=== PATIENT | male | born 1965 | race Caucasian/White ===

== ENCOUNTER 2021-09-18 02:04 | Inpatient (IN) | payer OTHER ==
[~2021-09-18] VITALS: Ht 182.9 cm; Wt 188.2 kg
[2021-09-18 03:18] LABS: HEMOGLOBIN 15.1 gm/dl (14.0-17.5); RED BLOOD COUNT 4.92 M/UL (4.20-5.50); WHITE BLOOD COUNT 17.8 K/UL (4.5-11.0)
[2021-09-18 04:03] LABS: BUN/CREATININE RATIO 26 (0-10)
[2021-09-18] MEDS ORDERED: XTAMPZA ER18 MG PO (10:42)
[2021-09-18] MEDS ORDERED: GABAPENTIN800 MG PO (10:42)
[2021-09-18] MEDS ORDERED: CYMBALTA60 MG PO (10:43)
[2021-09-18] MEDS ORDERED: OXYCODONE-ACET1 EACH PO (10:43)
[2021-09-18] MEDS ORDERED: TRESIBA SQ (10:44)
[2021-09-18] MEDS ORDERED: JARDIANCE25 MG PO (10:44)
[2021-09-18] MEDS ORDERED: LEVOTHYROXINE50 MCG PO (10:45)
[2021-09-18] MEDS ORDERED: BENAZEPRIL HCL5 MG PO (10:45)
[2021-09-18] MEDS ORDERED: PRAVASTATIN SOD20 MG PO (10:46)
[2021-09-18] MEDS ORDERED: ASPIRIN EC81 MG PO (10:46)
[2021-09-18 21:24] LABS: ACINETOBACTER BAUMANNII Not Detected (Negative); CANDIDA ALBICANS Not Detected (Negative); CANDIDA KRUSEI Not Detected (Negative); CANDIDA TROPICALIS Not Detected (Negative); ENTEROCOCCUS Not Detected (Negative); ESCHERICHIA COLI Not Detected (Negative); HAEMOPHILUS INFLUENZAE Not Detected (Negative); KLEBSIELLA OXYTOCA Not Detected (Negative); KLEBSIELLA PNEUMONIAE Not Detected (Negative); KPC-CARBAPENEM-RESISTANCE GENE Not Detected (Negative); PROTEUS Not Detected (Negative); PSEUDOMONAS AERUGINOSA Not Detected (Negative); SERRATIA MARCESANS Not Detected (Negative); STREP AGALACTIAE (GROUP B) Not Detected (Negative); STREP PYOGENES (GROUP A) Not Detected (Negative); STREPTOCOCCUS Not Detected (Negative); mecA (METHICILLIN RESIST GENE Not Detected (Negative); vanA/B (VANCOMYCIN RESIST GENE Not Detected (Negative)
[2021-09-18 22:37] LABS: STAPHYLOCOCCUS DETECTED (Negative); STAPHYLOCOCCUS AUREUS DETECTED (Negative)
[2021-09-19 08:18] LABS: HEMOGLOBIN 15.7 gm/dl (14.0-17.5); RED BLOOD COUNT 5.37 M/UL (4.20-5.50); WHITE BLOOD COUNT 13.2 K/UL (4.5-11.0)
--- NOTE | 2021-09-19 11:47 | NUR ---
PATIENT NOTED TO HAVE A CO2 OF 7. PROVIDER MADE AWARE. NEW ORDERS GIVEN
[2021-09-19 14:37] LABS: BUN/CREATININE RATIO 45 (0-10)
--- NOTE | 2021-09-19 14:45 | NUR ---
PATIENT STARTED ON BICARB DRIP AT THIS TIME PER PROVIDER ORDER. PATIENT IS RESTINGIN BED AT THS TIME WITH NO ACUTE DISTRESS NOTED. PATIENT DENIES ANY NEW NEEDS. AWAITING AN ICU BED ASSIGNMENT AT THIS TIME.
[2021-09-19 19:25] LABS: BUN/CREATININE RATIO 42 (0-10)
--- NOTE | 2021-09-19 19:32 | NUR ---
Report called to Dana RN in ICU at this time.
[2021-09-19 23:32] LABS: BUN/CREATININE RATIO 43 (0-10)
[2021-09-20 02:06] LABS: HEMOGLOBIN 14.4 gm/dl (14.0-17.5); WHITE BLOOD COUNT 10.5 K/UL (4.5-11.0)
[2021-09-20 02:12] LABS: RED BLOOD COUNT 4.69 M/UL (4.20-5.50)
[2021-09-20 02:24] LABS: BUN/CREATININE RATIO 39 (0-10)
[2021-09-20 06:40] LABS: BUN/CREATININE RATIO 37 (0-10)
[2021-09-20 10:29] LABS: BUN/CREATININE RATIO 38 (0-10)
[2021-09-20 12:02] LABS: BUN/CREATININE RATIO 41 (0-10)
[2021-09-20 14:38] LABS: BUN/CREATININE RATIO 36 (0-10)
[2021-09-20 16:14] LABS: ORGANISM ID Not indicated. (.); SPECIMEN SOURCE Urine (.); STREPTOCOCCUS PNEUMONIAE AG Negative (Negative)
[2021-09-20 18:39] LABS: BUN/CREATININE RATIO 35 (0-10)
[2021-09-20 23:00] LABS: BUN/CREATININE RATIO 32 (0-10)
[2021-09-21 03:52] LABS: HEMOGLOBIN 13.6 gm/dl (14.0-17.5); RED BLOOD COUNT 4.53 M/UL (4.20-5.50); WHITE BLOOD COUNT 10.2 K/UL (4.5-11.0)
[2021-09-21 04:13] LABS: BUN/CREATININE RATIO 33 (0-10)
[2021-09-21 04:17] LABS: BUN/CREATININE RATIO 36 (0-10)
[2021-09-21] MEDS ORDERED: HUMALOG 10100 UNITS/ SC (12:20)
[2021-09-21] MEDS ORDERED: METFORMIN HCL1000 M1 PO (12:20)
[2021-09-21] MEDS ORDERED: BACTRIM DS TAB1 EACH PO (12:20)
[2021-09-21] MEDS ORDERED: LANTUS INS100 UTS/M1 SQ (12:20)
--- NOTE | 2021-09-21 12:56 | NUR ---
with dr. anderson patient able to get out of bed with no assistance
== END 2021-09-21 13:52 | disposition home or self-care (01) | DRG 637 ==
LOC: ER1 02:04 → CDU 04:47 → CCU 04:47 → CDU 04:47 → MED SURG 4 20:20 → CCU 09-19 21:45 → M/S 09-20 19:32
PROVIDERS: Family Medicine; Internal Medicine; Internal Medicine Nephrology; ADMIT Internal Medicine
PROC: B24BZZZ Ultrasonography of Heart with Aorta (ICD-10-PCS; principal; 2021-09-19)
DX: E11.10 Type 2 diabetes mellitus with ketoacidosis without coma (principal); J96.01 Acute respiratory failure with hypoxia; J18.9 Pneumonia, unspecified organism; N17.9 Acute kidney failure, unspecified; G93.40 Encephalopathy, unspecified; M62.82 Rhabdomyolysis; Z20.822 Contact with and (suspected) exposure to COVID-19; I11.0 Hypertensive heart disease with heart failure; G89.4 Chronic pain syndrome; N18.9 Chronic kidney disease, unspecified; N28.89 Other specified disorders of kidney and ureter; B95.62 Methicillin resistant Staphylococcus aureus infection as the cause of diseases classified elsewhere; E11.65 Type 2 diabetes mellitus with hyperglycemia; I07.1 Rheumatic tricuspid insufficiency; F11.10 Opioid abuse, uncomplicated; E66.01 Morbid (severe) obesity due to excess calories; Z79.82 Long term (current) use of aspirin; Z79.4 Long term (current) use of insulin
CPT/HCPCS: ECHO; 36415; 36600; 70450; 71045; 78580; 80048; 80053; 80202; 80307; 81001; 82009; 82550; 82553; 82803; 82962; 83036; 83605; 83735; 83874; 83880; 84100; 84484; 85025; 85379; 85610; 86140; 87040; 87077; 87086; 87150; 87186; 87278; 87899; 93005; 93306; 94640; 94664; 94760; 96374; 99285; A9540; J1644; J1956; J2310; J2543; J3370; J7030; J7070; P9047

== ENCOUNTER → 2022-02-12 | Outpatient (CLI) | payer OTHER ==
[~2022-02-12] MED LIST: ASPIRIN EC81 MG PO; BACTRIM DS TAB1 EACH PO; BENAZEPRIL HCL5 MG PO; CYMBALTA60 MG PO; GABAPENTIN800 MG PO; HUMALOG 10100 UNITS/ SC; JARDIANCE25 MG PO; LANTUS INS100 UTS/M1 SQ; LEVOTHYROXINE50 MCG PO; METFORMIN HCL1000 M1 PO; OXYCODONE-ACET1 EACH PO; PRAVASTATIN SOD20 MG PO; TRESIBA SQ; XTAMPZA ER18 MG PO
== END ==
LOC: WCC 07:39
DX: L89.154 Pressure ulcer of sacral region, stage 4 (principal); K68.12 Psoas muscle abscess; E11.65 Type 2 diabetes mellitus with hyperglycemia; E66.01 Morbid (severe) obesity due to excess calories; G47.33 Obstructive sleep apnea (adult) (pediatric); I10 Essential (primary) hypertension; I26.99 Other pulmonary embolism without acute cor pulmonale; N31.9 Neuromuscular dysfunction of bladder, unspecified; M62.81 Muscle weakness (generalized); I82.509 Chronic embolism and thrombosis of unspecified deep veins of unspecified lower extremity; Z74.1 Need for assistance with personal care; Z88.8 Allergy status to other drugs, medicaments and biological substances; Z79.01 Long term (current) use of anticoagulants

== ENCOUNTER → 2022-02-20 | Outpatient (CLI) | payer OTHER | END | disposition home or self-care (01) | LOC: WCC 07:30 | DX: L89.154 Pressure ulcer of sacral region, stage 4 (principal); K68.12 Psoas muscle abscess; E11.65 Type 2 diabetes mellitus with hyperglycemia; I11.9 Hypertensive heart disease without heart failure; I26.99 Other pulmonary embolism without acute cor pulmonale; I82.509 Chronic embolism and thrombosis of unspecified deep veins of unspecified lower extremity; M62.81 Muscle weakness (generalized); G47.33 Obstructive sleep apnea (adult) (pediatric); N31.9 Neuromuscular dysfunction of bladder, unspecified; E66.01 Morbid (severe) obesity due to excess calories; Z79.4 Long term (current) use of insulin; Z79.01 Long term (current) use of anticoagulants; Z68.38 Body mass index [BMI] 38.0-38.9, adult; Z74.1 Need for assistance with personal care ==

== ENCOUNTER → 2022-03-12 | Outpatient (CLI) | payer OTHER | END | disposition home or self-care (01) | LOC: WCC 07:17 | DX: L89.154 Pressure ulcer of sacral region, stage 4 (principal); K68.12 Psoas muscle abscess; I10 Essential (primary) hypertension; I26.99 Other pulmonary embolism without acute cor pulmonale; I82.509 Chronic embolism and thrombosis of unspecified deep veins of unspecified lower extremity; M62.81 Muscle weakness (generalized); G47.33 Obstructive sleep apnea (adult) (pediatric); N31.9 Neuromuscular dysfunction of bladder, unspecified; E11.65 Type 2 diabetes mellitus with hyperglycemia; E66.01 Morbid (severe) obesity due to excess calories; Z68.38 Body mass index [BMI] 38.0-38.9, adult; Z74.1 Need for assistance with personal care; Z79.4 Long term (current) use of insulin; Z79.01 Long term (current) use of anticoagulants; Z79.899 Other long term (current) drug therapy ==

== ENCOUNTER → 2022-03-27 | Outpatient (CLI) | payer OTHER | LOC: WCC 07:28 | DX: L89.154 Pressure ulcer of sacral region, stage 4 (principal); K68.12 Psoas muscle abscess; E11.65 Type 2 diabetes mellitus with hyperglycemia; E66.01 Morbid (severe) obesity due to excess calories; G47.33 Obstructive sleep apnea (adult) (pediatric); I10 Essential (primary) hypertension; I26.99 Other pulmonary embolism without acute cor pulmonale; N31.9 Neuromuscular dysfunction of bladder, unspecified; M62.81 Muscle weakness (generalized); I82.509 Chronic embolism and thrombosis of unspecified deep veins of unspecified lower extremity; I82.409 Acute embolism and thrombosis of unspecified deep veins of unspecified lower extremity; E11.40 Type 2 diabetes mellitus with diabetic neuropathy, unspecified; Z74.1 Need for assistance with personal care; Z88.8 Allergy status to other drugs, medicaments and biological substances ==

== ENCOUNTER → 2022-04-02 | Outpatient (CLI) | payer OTHER | LOC: WCC 07:14 | DX: L89.154 Pressure ulcer of sacral region, stage 4 (principal); K68.12 Psoas muscle abscess; E11.65 Type 2 diabetes mellitus with hyperglycemia; I82.509 Chronic embolism and thrombosis of unspecified deep veins of unspecified lower extremity; E66.01 Morbid (severe) obesity due to excess calories; G47.33 Obstructive sleep apnea (adult) (pediatric); I10 Essential (primary) hypertension; I26.99 Other pulmonary embolism without acute cor pulmonale; N31.9 Neuromuscular dysfunction of bladder, unspecified; Z74.1 Need for assistance with personal care; M62.81 Muscle weakness (generalized); Z68.38 Body mass index [BMI] 38.0-38.9, adult; Z88.8 Allergy status to other drugs, medicaments and biological substances; Z79.4 Long term (current) use of insulin; Z79.899 Other long term (current) drug therapy ==

== ENCOUNTER → 2022-04-16 | Outpatient (CLI) | payer OTHER | LOC: WCC 07:13 | DX: L89.154 Pressure ulcer of sacral region, stage 4 (principal); E11.65 Type 2 diabetes mellitus with hyperglycemia; E66.01 Morbid (severe) obesity due to excess calories; G47.33 Obstructive sleep apnea (adult) (pediatric); I10 Essential (primary) hypertension; I26.99 Other pulmonary embolism without acute cor pulmonale; N31.9 Neuromuscular dysfunction of bladder, unspecified; M62.81 Muscle weakness (generalized); I82.509 Chronic embolism and thrombosis of unspecified deep veins of unspecified lower extremity; E11.40 Type 2 diabetes mellitus with diabetic neuropathy, unspecified; Z74.1 Need for assistance with personal care; Z79.01 Long term (current) use of anticoagulants; Z88.8 Allergy status to other drugs, medicaments and biological substances ==

== ENCOUNTER → 2022-04-30 | Outpatient (CLI) | payer OTHER | LOC: WCC 07:11 | DX: L89.154 Pressure ulcer of sacral region, stage 4 (principal); E11.65 Type 2 diabetes mellitus with hyperglycemia; E66.01 Morbid (severe) obesity due to excess calories; G47.33 Obstructive sleep apnea (adult) (pediatric); I10 Essential (primary) hypertension; I26.99 Other pulmonary embolism without acute cor pulmonale; N31.9 Neuromuscular dysfunction of bladder, unspecified; M62.81 Muscle weakness (generalized); I82.509 Chronic embolism and thrombosis of unspecified deep veins of unspecified lower extremity; E11.40 Type 2 diabetes mellitus with diabetic neuropathy, unspecified; Z74.1 Need for assistance with personal care; Z79.01 Long term (current) use of anticoagulants; Z88.8 Allergy status to other drugs, medicaments and biological substances ==

== ENCOUNTER → 2022-06-04 | Outpatient (CLI) | payer OTHER | LOC: WCC 07:08 | DX: L89.154 Pressure ulcer of sacral region, stage 4 (principal); E11.65 Type 2 diabetes mellitus with hyperglycemia; E66.01 Morbid (severe) obesity due to excess calories; G47.33 Obstructive sleep apnea (adult) (pediatric); I10 Essential (primary) hypertension; I26.99 Other pulmonary embolism without acute cor pulmonale; N31.9 Neuromuscular dysfunction of bladder, unspecified; M62.81 Muscle weakness (generalized); I82.509 Chronic embolism and thrombosis of unspecified deep veins of unspecified lower extremity; E11.40 Type 2 diabetes mellitus with diabetic neuropathy, unspecified; Z74.1 Need for assistance with personal care; Z79.01 Long term (current) use of anticoagulants; Z88.8 Allergy status to other drugs, medicaments and biological substances ==

== ENCOUNTER → 2022-06-18 | Outpatient (CLI) | payer OTHER | LOC: WCC 07:21 | DX: L89.154 Pressure ulcer of sacral region, stage 4 (principal); E11.65 Type 2 diabetes mellitus with hyperglycemia; E66.01 Morbid (severe) obesity due to excess calories; G47.33 Obstructive sleep apnea (adult) (pediatric); I10 Essential (primary) hypertension; I26.99 Other pulmonary embolism without acute cor pulmonale; N31.9 Neuromuscular dysfunction of bladder, unspecified; M62.81 Muscle weakness (generalized); I82.509 Chronic embolism and thrombosis of unspecified deep veins of unspecified lower extremity; Z74.1 Need for assistance with personal care; Z79.01 Long term (current) use of anticoagulants; Z88.8 Allergy status to other drugs, medicaments and biological substances ==